=== PATIENT | male | born 1975 | race Caucasian/White ===

== ENCOUNTER 2017-10-04 23:13 | Emergency (ER) | payer SELFPAY ==
[~2017-10-04] VITALS: Ht 180.3 cm; Wt 84.1 kg
[2017-10-04] MEDS ORDERED: SODIUM CHLORIDE 0.9% 1,000 ML IV ONE (23:44)
[2017-10-04] MEDS ORDERED: ONDANSETRON HCL 4MG/2ML VIAL IV STA (23:44)
[2017-10-04] MEDS ORDERED: MORPHINE SULFATE 4 MG/ML CPJ (NOT FOR IM USE) IV STA (23:44)
[2017-10-05 02:01] VITALS: BP 138/87
== END 2017-10-05 02:01 | disposition home or self-care (01) ==
LOC: ER 23:13
DX: S52.692A Other fracture of lower end of left ulna, initial encounter for closed fracture (principal); F17.200 Nicotine dependence, unspecified, uncomplicated; F15.10 Other stimulant abuse, uncomplicated; Y08.89XA Assault by other specified means, initial encounter; Y93.89 Activity, other specified; Y92.89 Other specified places as the place of occurrence of the external cause; Y99.8 Other external cause status
CPT/HCPCS: 29105; 73090; 96374; 96375; 99284; J2270; J2405; J7030; A4565

== ENCOUNTER 2018-01-12 16:30 | Emergency (ER) | payer SELFPAY ==
[~2018-01-12] VITALS: Ht 165.1 cm; Wt 100.0 kg
[2018-01-13] MEDS ORDERED: BACITRACIN ZINC OINT UDPKT TOP ONE (01:30)
[2018-01-13] MEDS ORDERED: TETANUS, DIPHTHERIA, PERTUSSIS VAC/PF 0.5ML (>7YR OLD) IM ONE (01:30)
[2018-01-13] MEDS ORDERED: IBUPROFEN 800MG TABLET PO ONE (01:30)
[2018-01-13 02:30] VITALS: BP 103/65
== END 2018-01-13 02:30 | disposition home or self-care (01) ==
LOC: ER 16:30
DX: S90.32XA Contusion of left foot, initial encounter (principal); L03.116 Cellulitis of left lower limb; V02.90XA Pedestrian on foot injured in collision with two- or three-wheeled motor vehicle, unspecified whether traffic or nontraffic accident, initial encounter; Y93.89 Activity, other specified; Y92.89 Other specified places as the place of occurrence of the external cause; Y99.8 Other external cause status
CPT/HCPCS: 73590; 73630; 90471; 90715; 93971; 99284

== ENCOUNTER 2023-12-22 08:15 | Emergency (ER) | payer SELFPAY ==
[~2023-12-22] VITALS: Ht 180.3 cm; Wt 109.0 kg
[2023-12-22 08:16] VITALS: BP 132/81; PULSE 90; RESP 18; TEMP 98.2; O2SAT 99
[2023-12-22] MEDS ORDERED: TOPUD PO (10:49)
== END 2023-12-22 12:22 | disposition home or self-care (01) ==
LOC: ER 08:15
DX: M79.10 Myalgia, unspecified site (principal); M79.672 Pain in left foot; M79.605 Pain in left leg; G31.89 Other specified degenerative diseases of nervous system
CPT/HCPCS: 71101; 74176; 99284

== ENCOUNTER 2024-01-13 10:29 | Emergency (ER) | payer SELFPAY ==
[~2024-01-13] VITALS: Ht 175.3 cm; Wt 119.0 kg
[~2024-01-13 10:29] MED LIST: TOPUD PO
[2024-01-13 10:33] VITALS: O2SAT 96
[2024-01-13 11:03] LABS: HEMATOCRIT. 44.7 % (42.0-52.0); HEMOGLOBIN. 15.4 g/dL (14.0-18.0); MEAN CORPUSCULAR HEMOGLOBIN 31.2 pg (28.0-32.0); MEAN CORPUSCULAR HGB CONC 34.3 g/dL (31.0-37.0); MEAN CORPUSCULAR VOLUME 90.8 fL (80.0-94.0); MEAN PLATELET VOLUME 6.8 fl (7.4-10.4); PLATELET 229 x1000/uL (130-400); RED BLOOD CELL COUNT 4.93 mill/uL (4.7-6.1); RED CELL DISTRIBUTION WIDTH 13.2 % (11.6-14.6); WHITE BLOOD COUNT 13.9 x1000/uL (4.5-11.0)
[2024-01-13 11:05] LABS: DIFFERENTIAL COMMENT 1
[2024-01-13 11:17] LABS: CHLORIDE 101 mEq/L (98-107); POTASSIUM 4.1 mEq/L (3.5-5.1); SODIUM 133 mEq/L (136-145)
[2024-01-13 11:18] LABS: CALCIUM 9.1 mg/dL (8.7-10.4); CARBON DIOXIDE 26 mEq/L (21-32)
[2024-01-13 11:23] LABS: CREATININE 0.9 mg/dL (0.6-1.3); GLUCOSE 122 mg/dL (70-105); UREA NITROGEN BLOOD 8 mg/dL (9-23)
[2024-01-13] MEDS: ACETAMINOPHEN 325MG TABLET PO STA (13:02)
[2024-01-13] MEDS: DIPHENHYDRAMINE 25MG CAPSULE PO ONE (13:02)
[2024-01-13 13:48] LABS: CLARITY URINE CLEAR (CLEAR); COLOR URINE DARK YELLOW (YELLOW); GLUCOSE URINE NEGATIVE (NEGATIVE); KETONES URINE TRACE (NEGATIVE); LEUKOCYTE ESTERASE URINE 2+ (NEGATIVE); NITRITE URINE NEGATIVE (NEGATIVE); OCCULT BLOOD URINE 1+ (NEGATIVE); PROTEIN URINE TRACE (NEGATIVE); SPECIFIC GRAVITY URINE 1.022 (1.005-1.030)
[2024-01-13 14:10] LABS: SQUAMOUS EPITHELIAL CELL URINE NONE SEEN /lpf (RARE/1+)
[2024-01-13 14:11] LABS: WBC URINE 15-25 /hpf (0-2)
[2024-01-13 14:12] LABS: BACTERIA URINE TRACE; YEAST URINE NONE SEEN
[2024-01-13] MEDS ORDERED: CEFP200T14 MT (14:26)
[2024-01-13 14:34] VITALS: BP 144/76; PULSE 87; RESP 16; TEMP 36.78072; O2SAT 96
[2024-01-13 16:31] LABS: PLATELET ESTIMATE NORMAL
== END 2024-01-13 14:34 | disposition home or self-care (01) ==
LOC: ER 10:29
DX: S09.90XA Unspecified injury of head, initial encounter (principal); N39.0 Urinary tract infection, site not specified; Y04.0XXA Assault by unarmed brawl or fight, initial encounter; Y93.89 Activity, other specified; Y92.89 Other specified places as the place of occurrence of the external cause; Y99.8 Other external cause status
CPT/HCPCS: 99284; 70450; 80048; 81003; 85025; 87086; 36415; Q0163